=== PATIENT | male | born 1985 | race Caucasian/White ===

== ENCOUNTER 2025-01-06 12:26 | Emergency (ER) | payer SELFPAY ==
[~2025-01-06] VITALS: Ht 182.9 cm; Wt 72.6 kg
[2025-01-06 12:29] VITALS: TEMP 37.1; O2SAT 100; O2SAT 96
[2025-01-06 14:42] VITALS: BP 118/64; PULSE 116; RESP 12
[2025-01-06] MEDS: KETOROLAC 30MG/ML VIAL IM ONE (14:42)
[2025-01-06] MEDS ORDERED: IBUP-2029 MT (14:50)
== END 2025-01-06 14:46 | disposition home or self-care (01) ==
LOC: ER 12:26
DX: S52.691A Other fracture of lower end of right ulna, initial encounter for closed fracture (principal); S52.611A Displaced fracture of right ulna styloid process, initial encounter for closed fracture; W19.XXXA Unspecified fall, initial encounter; Y93.89 Activity, other specified; Y92.89 Other specified places as the place of occurrence of the external cause; Y99.8 Other external cause status
CPT/HCPCS: 73110; 29125; 96372; 99283; J1885; Z7610